=== PATIENT | male | born 1980 | race American Indian/Alaskan Native ===

== ENCOUNTER 2020-01-25 07:41 | Emergency (ER) | payer SELFPAY ==
[2020-01-25 08:31] VITALS: BP 114/73
--- NOTE | 2020-01-25 11:22 | Emergency Department Report ---
ED General Adult HPI - General Chief complaint: Skin/Abscess/Foreign Body Stated complaint: GLASS IN LEFT HAND Time Seen by Provider: 01/25/20 10:41 Source: patient Mode of arrival: Ambulatory Limitations: No Limitations - History of Present Illness Initial comments: 39-year-old male patient complains of glass foreign body to the palm of his left hand x1 month, now painful for the past 3 days. Patient states the glass penetrated his hand 1 month ago due to a fall. Patient states he thought he removed all the glass but noticed that there was still some left in his hand that is now appearing to push towards the surface. He rates his pain as a 7/10 in severity. He denies any bony pain or drainage. - Related Data Previous Rx's Medication Instructions Recorded Last Taken Type Ibuprofen [Motrin 800 MG tab] 800 mg PO Q8HR PRN #21 tablet 01/25/20 Unknown Rx cephALEXin [Keflex] 500 mg PO Q12HR 10 Days #20 cap 01/25/20 Unknown Rx ED Review of Systems ROS: Stated complaint: GLASS IN LEFT HAND Other details as noted in HPI Constitutional: denies: chills, fever, malaise, weakness Respiratory: denies: cough Musculoskeletal: denies: joint swelling, arthralgia Skin: change in color (redness) Neurological: denies: numbness, paresthesias ED Past Medical Hx - Past Medical History Previous Medical History?: No - Surgical History Past Surgical History?: No - Social History Smoking Status: Current Every Day Smoker Substance Use Type: None - Medications Home Medications: Home Medications Medication Instructions Recorded Confirmed Last Taken Type Ibuprofen [Motrin 800 MG tab] 800 mg PO Q8HR PRN #21 tablet 01/25/20 Unknown Rx cephALEXin [Keflex] 500 mg PO Q12HR 10 Days #20 cap 01/25/20 Unknown Rx ED Physical Exam - General Limitations: No Limitations General appearance: alert, in no apparent distress - Head Head exam: Present: atraumatic, normocephalic - Eye Eye exam: Present: normal appearance. Absent: scleral icterus - Respiratory Respiratory exam: Absent: respiratory distress - Cardiovascular Cardiovascular Exam: Present: regular rate, normal rhythm - Expanded Upper Extremity Exam Left Hand L/R Front: 1 - Positive: other (There is a callus noted with mild surrounding erythema and significant tenderness to palpation) ED Course Vital Signs 01/25/20 08:29 Temperature 98.1 F Pulse Rate 69 Respiratory 18 Rate Blood Pressure 114/73 O2 Sat by Pulse 98 Oximetry - Procedure Description Procedures done: Foreign body removal from left hand. Sterile technique used. Betadine prep used. 1.5 cm incision made to left lower palm. Approximately a 1 cm triangular piece of glass was removed. Minimal bleeding occurred. 3 simple sutures were placed using 5-0 Ethilon sutures. Normal perfusion and range of motion of hand noted post procedure. Patient tolerated procedure well without any immediate complications ED Medical Decision Making - Radiology Data Radiology results: report reviewed LEFT HAND 3 VIEWS INDICATION / CLINICAL INFORMATION: foreign body in palm. COMPARISON: None available. FINDINGS: There is a small triangular-shaped foreign body superimposed over the base of the ring finger metacarpal on the PA view and the base of the long finger metacarpal on the oblique view. - Medical Decision Making Patient presents with complaints of glass foreign body in left palm. Tenderness and mild erythema noted on exam. X-ray shows foreign body. Foreign body was removed and sutures were placed. Patient placed on Keflex. Patient is well- appearing and his vitals are stable. Patient stable for discharge home patient instructed to return to the ED in 10 days for suture removal. Wound care and signs and symptoms of infection were discussed in detail with patient along with strict return precautions, patient verbalized understanding. Critical care attestation.: If time is entered above; I have spent that time in minutes in the direct care of this critically ill patient, excluding procedure time. ED Disposition Clinical Impression: Foreign body of left hand Qualifiers: Encounter type: initial encounter Qualified Code(s): S60.552A - Superficial foreign body of left hand, initial encounter Disposition: - TO HOME OR SELFCARE Is pt being admited?: No Condition: Stable Instructions: Soft Tissue Foreign Body (ED), Laceration (ED) Additional Instructions: Return to the emergency department in 10 days for suture removal Prescriptions: cephALEXin [Keflex] 500 mg PO Q12HR 10 Days #20 cap Ibuprofen [Motrin 800 MG tab] 800 mg PO Q8HR PRN #21 tablet PRN Reason: pain Referrals: PRIMARY CARE, [Primary Care Provider] - 3-5 Days Forms: Work/School Release Form(ED)
--- NOTE | 2020-01-25 12:26 | XRay Report ---
LEFT HAND 3 VIEWS INDICATION / CLINICAL INFORMATION: foreign body in palm. COMPARISON: None available. FINDINGS: There is a small triangular-shaped foreign body superimposed over the base of the ring finger metacar pal on the PA view and the base of the long finger metacarpal on the oblique view. Signer Name: Adam Valente MD FACOpal Signed: 01/25/2020 12:21 PM Workstation Name: [id number]
[2020-01-25] MEDS ORDERED: LIDOCAINE (1%) 10 MG/1 ML VIAL 20 ML MDV INFILTRATI ONE (12:49)
== END 2020-01-25 13:48 | disposition home or self-care (01) ==
LOC: ED 07:41
DX: S60.552A Superficial foreign body of left hand, initial encounter (principal); F17.200 Nicotine dependence, unspecified, uncomplicated; Z79.1 Long term (current) use of non-steroidal anti-inflammatories (NSAID); Z79.2 Long term (current) use of antibiotics; W25.XXXA Contact with sharp glass, initial encounter; Y93.89 Activity, other specified; Y92.89 Other specified places as the place of occurrence of the external cause; Y99.8 Other external cause status